=== PATIENT | female | born 1985 | race American Indian/Alaskan Native ===

== ENCOUNTER 2020-04-21 05:47 | Day surgery (SDC) | payer MEDICAID ==
[~2020-04-21 05:47] MED LIST: ceFAZolin/STERILE WATER 2 GM/20 ML SYRINGE IV NR
[2020-04-21] MEDS ORDERED: BACTERIOSTATIC SODIUM CHLORIDE 0.9% 30 ML VIAL INFILTRATI ONE (06:13)
[2020-04-21] MEDS ORDERED: LACTATED RINGERS 1,000 ML IV SCH (06:15)
[2020-04-21] MEDS ORDERED: MIDAZOLAM 2 MG/2 ML INJ IV NR (07:08)
[2020-04-21] MEDS ORDERED: ONDANSETRON 4 MG/2 ML INJ IV PRN (07:17)
[2020-04-21] MEDS ORDERED: HYDROmorphone 1 MG/1 ML INJ IV PRN ×2 (07:17)
[2020-04-21] MEDS ORDERED: propofoL 200 MG/20 ML VIAL IV ONE (07:18)
--- NOTE | 2020-04-21 07:18 | Anesthesia Day of Surgery ---
Anesthesia Day of Surgery - Day of Surgery Patient Examined: Yes Patient H&P Reviewed: Yes Patient is NPO: Yes
--- NOTE | 2020-04-21 07:20 | Anesthesia Consultation ---
Anesthesia Consult and Med Hx Date of service: 04/21/20 - Airway Anesthetic Teeth Evaluation: Poor (One tooth-caries and to be pulled. +Braces) ROM Head & Neck: Adequate Mental/Hyoid Distance: Adequate Mallampati Class: Class I Intubation Access Assessment: Good - Pre-Operative Health Status ASA Pre-Surgery Classification: ASA2 Proposed Anesthetic Plan: General - Pulmonary Hx Smoking: No Hx Respiratory Symptoms: No (+2FS; denies residual COVID symptoms) Hx Pneumonia: Yes (06/2019 WITH COVID- RESOLVED) Hx Sleep Apnea: No (SANDEE PRE SCREEN NEGATIVE) - Cardiovascular System Hx Hypertension: Yes (WITH PREG ONLY- OFF MEDS X 1 MONTH) - Central Nervous System Hx Psychiatric Problems: No - Hematic Hx Sickle Cell Disease: No - Other Systems Hx Cancer: No Hx Obesity: Yes
[2020-04-21] MEDS ORDERED: LIDOCAINE MPF (2%) 20 MG/1 ML VIAL 5 ML ONE (07:21)
[2020-04-21] MEDS ORDERED: ONDANSETRON 4 MG/2 ML INJ ONE (08:13)
--- NOTE | 2020-04-21 08:24 | Short Stay Summary ---
Short Stay Documentation - History H&P: obtained from office - Allergies and Medications Current Medications: Allergies No Known Allergies Allergy (Verified 04/16/20 16:10) Home Medications Medication Instructions Recorded Confirmed Last Taken Type 21/Iron Fu/Folic Acid 1 each PO DAILY 04/16/20 04/21/20 04/20/20 History [ Complete Caplet] Active Medications Cefazolin Sodium (Cefazolin/Sterile Water 2 Gm/20 Ml Syringe) 2 gm IV PREOP NR Stop: 04/21/20 23:59 Hydromorphone HCl (Hydromorphone 1 Mg/1 Ml Inj) 0.25 mg IV Q10MIN PRN PRN Reason: Pain, Moderate (4-6) Stop: 04/21/20 23:00 Hydromorphone HCl (Hydromorphone 1 Mg/1 Ml Inj) 0.5 mg IV Q10MIN PRN PRN Reason: Pain , Severe (7-10) Stop: 04/21/20 23:00 Lactated Ringer's (Lactated Ringers) 1,000 mls @ 100 mls/hr IV DIRECT MONTEZ Last Admin: 04/21/20 06:50 Dose: 100 mls/hr Documented by: Midazolam HCl (Midazolam 2 Mg/2 Ml Inj) 2 mg IV ONCE NR Stop: 04/21/20 23:00 Last Admin: 04/21/20 07:21 Dose: 2 mg Documented by: Ondansetron HCl (Ondansetron 4 Mg/2 Ml Inj) 4 mg IV ONCE PRN PRN Reason: Nausea And Vomiting Stop: 04/21/20 23:00 - Brief post op/procedure progress note Date of procedure: 04/21/20 Pre-op diagnosis: urethral mass Post-op diagnosis: other (urethral diverticulum) Procedure: cysto, rpg, urethrogram Anesthesia: GETA Surgeon: PILAR LEAL Condition: stable - Hospital course Hospital course: ultram, macrobid, diflucan on chart - Disposition Condition at discharge: Stable Disposition: DC-01 TO HOME OR SELFCARE Short Stay Discharge Plan Follow up with: PRIMARY CARE, [Primary Care Provider] - 7 Days
[2020-04-21] MEDS ORDERED: WATER FOR IRRIG STERILE 2000 ML IR ONE (08:42)
[2020-04-21] MEDS ORDERED: WATER FOR IRRIG STERILE 1,500 ML BOTTLE IR ONE (08:42)
[2020-04-21 09:17] VITALS: BP 125/87
--- NOTE | 2020-04-21 09:38 | Operative Report ---
PREOPERATIVE DIAGNOSIS: Urethral mass. POSTOPERATIVE DIAGNOSIS: Urethral mass. Urethral diverticulum (5 cm multiloculated). PROCEDURES: Cystoscopy, bilateral retrograde pyelograms, urethrogram. SURGEON: Jamil Chan MD ANESTHESIA: General. ESTIMATED BLOOD LOSS: Minimal. FLUIDS: Crystalloid. COMPLICATIONS: No complications. INDICATIONS: This patient is a 34-year-old female who was seen in the office with a bladder mass. The patient had a baby July last year and it is uncertain the mass was present before the , but clearly during the and afterwards, it increased in size. She had an MRI of the pelvis, which revealed a 5.2 cm mass in largest diameter. No solid enhancing components. She presents now for endoscopic evaluation. DESCRIPTION OF PROCEDURE: The patient was taken to the operative suite, placed in a supine position. After adequate general anesthesia, placed in a dorsal lithotomy position, prepped and draped in a sterile fashion. Vaginal exam, no ulcerations, vaginally could palpate this anterior vaginal wall mass. Cystoscopy was performed. Initially could not appreciate the opening; however, mid urethra could appreciate a small hole. On cystogram, this opening was injected with dye and confirmed a cystic mass consistent with a urethral diverticulum. Cystoscopy was performed. No bladder lesions could be appreciated. Both ureteral orifices in normal position. Bilateral retrograde pyelograms were obtained with an 8-Romanian ____ catheter and 8 mL of contrast with no filling defects or obstruction. Her bladder was drained, expressed fluid did not appear infected. The patient tolerated the procedure well. She was extubated and taken to recovery room. We discussed options afterwards. JOB# [id number] PEPE/ANDI
--- NOTE | 2020-04-21 09:43 | Post Anesthesia Evaluation ---
- Post Anesthesia Evaluation Patient Participated: Yes Airway Patent: Yes Stable Respiratory Function: Yes Nausea/Vomiting: No Temp > 96.8F: Yes Pain Manageable: Yes Adequeate Hydration: Yes Anesthesia Complications: No Block Receding Appropriately: Not Applicable Patient on Ventilator: No
--- NOTE | 2020-04-21 11:53 | Fluoroscopy Report ---
INTRAOPERATIVE FLUOROSCOPY: RETROGRADE UROGRAPHY INDICATION: URETHRAL STRICTURE. TECHNIQUE: Intraoperative spot images were obtained during the procedure. FINDINGS: No urethral stricture is clearly identified. There is unremarkable opacification of the ureters and r enal collecting systems. Please see the procedural report for further details. Fluoroscopy Time: 16 seconds. Fluoroscopy Images: 12. Signer Name: Jose Chawla MD Signed: 04/21/2020 11:49 AM Workstation Name: [id number]
== END 2020-04-21 05:48 | disposition home or self-care (01) ==
LOC: OR 05:47
PROVIDERS: ATTEND Urology
DX: N36.8 Other specified disorders of urethra (principal); N36.1 Urethral diverticulum; I10 Essential (primary) hypertension; E66.9 Obesity, unspecified; Z79.899 Other long term (current) drug therapy; Z87.01 Personal history of pneumonia (recurrent); Z98.890 Other specified postprocedural states; Z68.33 Body mass index [BMI] 33.0-33.9, adult; Z98.891 History of uterine scar from previous surgery
CPT/HCPCS: 52005; 74420; 74450; 81025; A4217; C1758; J0690; J1170; J2250; J2405; J2704; J7120; Q9967